=== PATIENT | female | born 1935 | race Caucasian/White ===

== ENCOUNTER → 2016-09-05 | Outpatient (CLI) | payer MEDICARE, OTHER | LOC: RAD 08:45 | DX: I71.4 Abdominal aortic aneurysm, without rupture (principal); R09.89 Other specified symptoms and signs involving the circulatory and respiratory systems; R19.00 Intra-abdominal and pelvic swelling, mass and lump, unspecified site; Z13.6 Encounter for screening for cardiovascular disorders; F17.210 Nicotine dependence, cigarettes, uncomplicated | CPT/HCPCS: 76706 ==

== ENCOUNTER → 2016-09-28 | Outpatient (CLI) | payer MEDICARE, OTHER ==
[2016-09-28 08:54] LABS: ABSOLUTE EOSINOPHILS # (AUTO) 0.1 10^3/uL (0.0-0.6); ABSOLUTE LYMPHOCYTES (AUTO) 1.8 10^3/uL (0.5-4.7); ABSOLUTE MONOCYTES (AUTO) 0.5 10^3/uL (0.1-1.4); ABSOLUTE NEUT (AUTO) 2.8 10^3/uL (1.7-8.2); BASOPHILS % (AUTO) 0.6 % (0-2); EOSINOPHILS % (AUTO) 1.8 % (0-6); HEMATOCRIT 41.1 % (36.0-47.0); HEMOGLOBIN 14.2 g/dL (12.0-15.5); HGB HCT DIFFERENCE 1.5; LYMPHOCYTES % (AUTO) 34.1 % (13-45); MEAN CORPUSCULAR HGB CONC 34.5 g/dL (32.0-36.0); MEAN CORPUSCULAR VOLUME 98 fl (80-97); MONOCYTES % (AUTO) 8.9 % (3-13); RED BLOOD COUNT 4.17 10^6/uL (3.72-5.28); RED CELL DISTRIBUTION WIDTH 13.8 % (11.5-14.0); SEGMENTED NEUTROPHILS % (AUTO) 54.6 % (42-78); WHITE BLOOD COUNT 5.1 10^3/uL (4.0-10.5)
[2016-09-28 09:00] LABS: ALANINE AMINOTRANSFERASE 33 U/L (9-52); ALBUMIN 4.8 g/dL (3.5-5.0); ALKALINE PHOSPHATASE 66 U/L (38-126); ANION GAP 13 (5-19); ASPARTATE AMINO TRANSFERASE 30 U/L (14-36); BILIRUBIN,DIRECT 0.4 mg/dL (0.0-0.4); BILIRUBIN,TOTAL 1.3 mg/dL (0.2-1.3); BLOOD UREA NITROGEN 21 mg/dL (7-20); CALCIUM 10.5 mg/dL (8.4-10.2); CARBON DIOXIDE 28 mmol/L (22-30); CHLORIDE 102 mmol/L (98-107); CREATININE RESULT 0.75 mg/dL (0.52-1.25); Direct HDL 106 mg/dL (>40); GLUCOSE 96 mg/dL (75-110); POTASSIUM 4.3 mmol/L (3.6-5.0); TOTAL PROTEIN 7.7 g/dL (6.3-8.2); TRIGLYCERIDES 104 mg/dL (<150)
[2016-09-28 09:11] LABS: DIRECT LDL 80 mg/dL (<100)
[2016-09-28 09:30] LABS: THYROID STIMULATING HORMONE 0.82 uIU/mL (0.47-4.68)
== END ==
LOC: OD 08:01
PROVIDERS: ATTEND Internal Medicine
DX: Z79.899 Other long term (current) drug therapy (principal); E03.9 Hypothyroidism, unspecified; J45.20 Mild intermittent asthma, uncomplicated
CPT/HCPCS: 36415; 80053; 80061; 84439; 84443; 85025

== ENCOUNTER 2017-03-27 07:51 | Day surgery (SDC) | payer MEDICARE, OTHER ==
[~2017-03-27 07:51] MED LIST: EPINEPHRINE INJ 1 MG/10 ML DISP.SYRIN ONE; FLUMAZENIL INJ 0.5 MG/5 ML VIAL ONE; GLUCAGON,HUMAN RECOMB 1 MG INJ ONE; NALOXONE HCL INJ/PF 0.4 MG/1 ML SDV ONE; ONDANSETRON HCL INJ/PF 4 MG/2 ML SDV ONE
[2017-03-27] MEDS: MIDAZOLAM 2 MG/2 ML INJ ONE ×4 (08:18→08:56)
[2017-03-27] MEDS: FENTANYL CITRATE INJ/PF 100 MCG/2 ML AMPUL ONE ×6 (08:20→09:10)
--- NOTE | 2017-03-27 09:29 | Operative Report ---
Operative Report DATE OF SURGERY: 03/27/17 PREOPERATIVE DIAGNOSIS: Personal history of colon polyps POSTOPERATIVE DIAGNOSIS: 1. Sigmoid diverticulosis disease. 2. Internal hemorrhoids. 3. Ascending colon polyp. 4. Descending colon polyp OPERATION: 1. Total colonoscopy to cecum with photodocumentation. 2. Multiple polypectomies including ascending and descending colon SURGEON: NICOLE OWEN ANESTHESIA: Moderate Sedation TISSUE REMOVED OR ALTERED: Multiple polyps COMPLICATIONS: None ESTIMATED BLOOD LOSS: Scant INTRAOPERATIVE FINDINGS: See below PROCEDURE: Obtaining informed consent the patient was taken from the preoperative holding area to the main endoscopy suite where monitoring devices were attached to the patient. Plan and surgical timeout were conducted The patient was placed in the left lateral decubitus position with knees to chest. A perianal examination was performed. There was no visible or palpable anorectal pathology. Sphincter tone was felt to be normal. The flexible adult colonoscope was advanced through the anal rectal canal, all the way to the cecum. Visualization of the cecum was achieved and the ileocecal valve, the appendiceal orifice and transillumination of the anterior abdominal wall. This was an excellent study on the well-prepped bowel. Of note there were extensive sigmoid diverticulosis with marked amount of tortuosity requiring extensive manipulation to advance the scope through the sigmoid colon. The colonoscope was withdrawn slowly and methodically checked and the mucosa carefully. There was no evidence of tumor, stricture, bleeding; in the ascending colon was a small polyp which was removed with a cold forceps device. Bleeding was negligible. In the left colon was a slightly larger sessile polyp which was removed with a hot snare device medium strength. Both specimens were retrieved and sent as ascending and descending colon polyps respectively. The scope was slowly withdrawn through the anal rectal canal. Complete visualization of the rectum was achieved with photodocumentation. The scope was withdrawn to the patient's anus. The patient tolerated the procedure well and was taken to the recovery area in stable condition. Surveillance guidelines, patient be appropriate candidate for follow-up colonoscopy in 3 years, pending her overall medical condition.
--- NOTE | 2017-03-27 09:31 | PDOC DISCHARGE SUMMARY ---
Discharge Summary (SDC) - Discharge Final Diagnosis: 1. Sigmoid diverticulosis 2. Multiple bone polyps 3. Internal hemorrhoids. Date of Surgery: 03/27/17 Discharge Date: 03/27/17 Condition: Good Treatment or Instructions: [address] [address] POST ENDOSCOPY DISCHARGE INSTRUCTIONS 1. Diet: Start clear liquids that a regular diet as tolerated. 2. Resume all preoperative medications. All oral anticoagulants and aspirins can be resumed 24 hours after procedure. 3. If a polypectomy was performed some bleeding per rectum may occur. This should stop within 3 days. If not, please contact the office. 4. If you had a colonoscopy you may experience some bloating and delayed return of normal bowel function for several days, your regular bowel movement pattern should resume within a week. 5. Please contact [facility] at to make an appointment with Dr. Ricardo for 1 to 3 weeks following procedure. 6. If you have any questions or concerns regarding your care,treatment plan or follow up, please contact our office. 7. Per clinical guidelines we recommend you undergo a repeat colonoscopy in 3 years. Referrals: PETER TIDWELL MD [Primary Care Provider] - Discharge Diet: As Tolerated Discharge Activity: Activity As Tolerated Home Care Assistance: None Needed Report the Following to Your Physician Immediately: Shortness of Breath, Increase in Pain, Fever over 101 Degrees
[2017-03-27 10:33] VITALS: BP 121/69
== END 2017-03-27 10:30 | disposition home or self-care (01) ==
LOC: END 07:51
PROVIDERS: ATTEND Surgery
PROC: 0DBF8ZX Excision of Right Large Intestine, Via Natural or Artificial Opening Endoscopic, Diagnostic (ICD-10-PCS; principal; 2017-03-27 08:15)
PROC: 0DBG8ZX Excision of Left Large Intestine, Via Natural or Artificial Opening Endoscopic, Diagnostic (ICD-10-PCS; 2017-03-27 08:15)
DX: Z12.11 Encounter for screening for malignant neoplasm of colon (principal); D12.2 Benign neoplasm of ascending colon; D12.4 Benign neoplasm of descending colon; K57.30 Diverticulosis of large intestine without perforation or abscess without bleeding; K64.8 Other hemorrhoids; F17.210 Nicotine dependence, cigarettes, uncomplicated; E03.9 Hypothyroidism, unspecified; I73.9 Peripheral vascular disease, unspecified; J45.909 Unspecified asthma, uncomplicated; Z79.02 Long term (current) use of antithrombotics/antiplatelets; Z79.899 Other long term (current) drug therapy
CPT/HCPCS: 45380; 45385; 88305 ×2; J2250; J3010; J0171; J1610; J2310; J2405; J3490

== ENCOUNTER → 2017-05-02 | Outpatient (CLI) | payer MEDICARE, OTHER ==
--- NOTE | 2017-05-02 11:45 | WOMENS IMAGING REPORT ---
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 TECHNIQUE: Dual-Energy X-ray Absorptiometry (DEXA) of the AP Spine and Hip. LIMITATIONS: None. FINDINGS: LUMBAR SPINE: The bone mineral density (BMD) measured from L1-L4 in the AP projection correlates with a T-score of -1.0, which is osteopenia as defined by the World Health Organization. HIP: The bone mineral density (BMD) measured in the left hip correlates with a T-score of -2.3, which is o steopenia as defined by the World Health Organization. IMPRESSION: 1. LUMBAR SPINE: OSTEOPENIA. 2. HIP: OSTEOPENIA. COMMENT: The World Health Organization defines low BMD as follows: T-score: Normal: Greater than -1.0 Osteopenia: Between -1.0 and -2.5 Osteoporosis: Less than -2.5 without fractures Established osteoporosis: Less than -2.5 with fractures In general, you may wish to consider: Diagnosis Treatment Follow-up DEXA Normal BMD Prevention 2-3 years Osteopenia Prevention/Therapy 1-2 years Osteoporosis Therapy Yearly TECHNICAL DOCUMENTATION: JOB ID: [id number] [employer]- All Rights Reserved
--- NOTE | 2017-05-02 18:28 | WOMENS IMAGING REPORT ---
EXAM DESCRIPTION: 3D SCREENING MAMMO BILAT COMPLETED DATE/TIME: 05/02/2017 11:10 am REASON FOR STUDY: ROUTINE SCREENING; Z12.31 Z12.31 ENCNTR SCREEN MAMMOGRAM FOR MALIGNANT NEOPLASM O F SHRUTHI M81.8 OTHER OSTEOPOROSIS WITHOUT CURRENT PATHOLOGICAL FRACTU M81.0 AGE-RELATED OSTEOPOROSIS W /O CURRENT PATHOLOGICAL FRAC COMPARISON: None. TECHNIQUE: Standard craniocaudal and mediolateral oblique views of each breast recorded using digita l acquisition and breast tomosynthesis. LIMITATIONS: None. FINDINGS: Findings present which are benign by mammographic criteria. No suspicious masses, calcifi cations or architectural distortion. Pertinent benign findings: Stable bilateral breast parenchymal calcifications. Old right breast ster eotactic clip upper inner quadrant Read with the assistance of CAD. .[facility] - R2 Cenova Version 1.3 .[facility] Imaging - R2 Cenova Version 1.3 .[facility] Imaging - R2 Cenova Version 2.4 .[facility] [place] - R2 Cenova Version 2.4 .[facility] - R2 Suspension Cord Tier Version 9.2 Benign mammographic findings may include one or more of the following: Smooth masses, popcorn/rim/co arse calcifications, asymmetries, post-procedure changes, and lesions with long-standing stability. IMPRESSION: BENIGN MAMMOGRAPHIC FINDINGS. BIRADS 2 BREAST DENSITY: d. The breasts are extremely dense, which lowers the sensitivity of mammography. BIRAD: 2 BENIGN FINDING(S) RECOMMENDATION: RECOMMENDATION: ROUTINE SCREENING Please continue yearly bilateral screening tomosynthesis in April 2018 COMMENT: The patient has been notified of the results by letter per SA requirements. Additional no tification policies are in place for contacting patient with suspicious or incomplete findings. Quality ID #[id number]: The [employer] recommends an annual screening mammogram for women aged 40 years or over. This facility utilizes a reminder system to ensure that all patients receive reminder letters, and/or direct phone calls for appointments. This includes reminders for routine scr eening mammograms, diagnostic mammograms, or other Breast Imaging Interventions when appropriate. Th is patient will be placed in the appropriate reminder system. The [employer] (ACR) has developed recommendations for screening MRI of the breast s in certain patient populations, to be used in conjunction with mammography. Breast MRI surveillanc e may be appropriate for women with more than 20% lifetime risk of developing breast cancer as deter mined by genetic testing, significant family history of the disease, or history of mantle radiation f or Hodgkins Disease. ACR Practice Guidelines 2008. DBT Technology DBT is a type of tomographic mammography. With conventional mammography, overlapping breast tissue ma y make lesions difficult to detect, even with good compression. DBT uses an x-ray tube that rotates a round the breast, taking images at different angles. These images are then combined to create thin sl ices of the breast that the radiologist can view as a 3D reconstruction. The [employer] unit can perform full-field digital mammograms (2D imaging); or DBT (3D imaging); or both, in a combination mode that quickly performs both the mammogram and the tomosynthesis scan while the breast is still compressed. PQRS 6045F: Fluoroscopic imaging is not utilized for breast tomosynthesis. TECHNICAL DOCUMENTATION: FINDING NUMBER: (1) ASSESSMENT: (1) JOB ID: [id number] [employer]- All Rights Reserved
== END ==
LOC: WI 10:14
PROVIDERS: ATTEND Student in an Organized Health Care Education/Training Program
DX: Z12.31 Encounter for screening mammogram for malignant neoplasm of breast (principal); M81.8 Other osteoporosis without current pathological fracture
CPT/HCPCS: 77063; 77080; G0202; 77067

== ENCOUNTER → 2017-06-13 | Outpatient (CLI) | payer MEDICARE, OTHER ==
--- NOTE | 2017-06-14 08:26 | RADIOLOGY REPORT (SQ) ---
EXAM DESCRIPTION: CHEST PA/LATERAL COMPLETED DATE/TIME: 06/13/2017 5:09 pm REASON FOR STUDY: SHORTNESS OF BREATH,COPD. Cough, shortness of breath. COMPARISON: Chest x-ray 01/05/2014. EXAM PARAMETERS: NUMBER OF VIEWS: two views TECHNIQUE: Digital Frontal and Lateral radiographic views of the chest acquired. RADIATION DOSE: NA LIMITATIONS: none FINDINGS: LUNGS AND PLEURA: No consolidation, pneumothorax or pleural effusion. There is pleural sc arring at the bilateral lung apices. Hyperlucent lungs are suggestive of emphysema. There is a 0.7 x 1.4 cm pleural-based nodularity in the left upper lobe. MEDIASTINUM AND HILAR STRUCTURES: No masses or contour abnormalities. HEART AND VASCULAR STRUCTURES: Heart normal size. No evidence for failure. BONES: No acute findings. HARDWARE: None in the chest. IMPRESSION: Emphysema. 0.7 x 1.4 cm pleural-based nodularity in the left upper lobe, CT thorax rec ommended for better characterisation. TECHNICAL DOCUMENTATION: JOB ID: [id number] [place]-64 2010 [employer]- All Rights Reserved
== END ==
LOC: OD 16:48
PROVIDERS: ATTEND Internal Medicine
DX: J44.9 Chronic obstructive pulmonary disease, unspecified (principal); R06.00 Dyspnea, unspecified; Z87.891 Personal history of nicotine dependence
CPT/HCPCS: 71046

== ENCOUNTER → 2018-03-02 | Outpatient (CLI) | payer MEDICARE, OTHER ==
[2018-03-02 16:45] LABS: BLOOD UREA NITROGEN 26 mg/dL (7-20)
== END ==
LOC: OD 14:25
PROVIDERS: ATTEND Internal Medicine
DX: Z01.812 Encounter for preprocedural laboratory examination (principal); R91.1 Solitary pulmonary nodule
CPT/HCPCS: 36415; 82565; 84520

== ENCOUNTER → 2018-03-05 | Outpatient (CLI) | payer MEDICARE, OTHER ==
--- NOTE | 2018-03-05 11:06 | RADIOLOGY REPORT (SQ) ---
EXAM DESCRIPTION: CT CHEST WITHOUT COMPLETED DATE/TIME: 03/05/2018 10:53 am REASON FOR STUDY: PULMONARY NODULE (R91.1) R91.1 SOLITARY PULMONARY NODULE COMPARISON: Chest films 06/13/2017, 01/05/2014, 01/12/2009 TECHNIQUE: CT scan performed of the chest without intravenous contrast. Images reviewed with lung, soft tissue and bone windows. Reconstructed coronal and sagittal MPR images reviewed. All images st ored on PACS. All CT scanners at this facility use dose modulation, iterative reconstruction, and/or weight based d osing when appropriate to reduce radiation dose to as low as reasonably achievable (ALARA). [facility]: Dose Right [facility]: CareDose [facility]: Dose Right [facility]: Teradose 4D [facility]: Smart Technologies RADIATION DOSE: CT Rad equipment meets quality standard of care and radiation dose reduction techniq ues were employed. CTDIvol: 2.8 mGy. DLP: 109 mGy-cm. mGy. LIMITATIONS: No technical limitations. FINDINGS: LUNGS AND PLEURA: Advanced end-stage obstructive lung disease with enlarged airspaces thro ughout the lungs. No pulmonary parenchymal nodules. No acute infiltrates. No pleural effusion. No pneumothorax. HILAR AND MEDIASTINAL STRUCTURES: Aberrant right subclavian artery, an anatomic variant. There is a 2 cm peripherally calcified aneurysm at the origin of the right aberrant subclavian artery best shown on coronal image 37 and axial image 31. Ascending thoracic aorta 4 cm in diameter. Descending thor acic aorta unremarkable. No hilar or mediastinal adenopathy. Small hiatal hernia. HEART AND PERICARDIUM: No aneurysm. No pericardial effusion. Moderate coronary artery calcification UPPER ABDOMEN: No significant findings. Limited exam. THYROID AND OTHER SOFT TISSUES: No masses. No adenopathy. BONES: No significant finding. HARDWARE: None in the chest. OTHER: No other significant findings. 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
== END ==
LOC: RAD 10:29
PROVIDERS: ATTEND Internal Medicine
DX: R91.1 Solitary pulmonary nodule (principal)
CPT/HCPCS: 71250

== ENCOUNTER 2019-12-13 11:47 | Emergency (ER) | payer MEDICARE, OTHER ==
[2019-12-13] MEDS ORDERED: ASPIRIN 81 MG TABLET, CHEWABLE PO ONE (12:07)
[2019-12-13] MEDS ORDERED: NORMAL SALINE 250 ML IV ONE (12:09)
[2019-12-13] MEDS ORDERED: NORMAL SALINE 1000 ML 1,000 ML IV ONE (12:10)
[2019-12-13 12:16] LABS: ABSOLUTE EOSINOPHILS # (AUTO) 0.1 10^3/uL (0.0-0.6); ABSOLUTE LYMPHOCYTES (AUTO) 1.6 10^3/uL (0.5-4.7); ABSOLUTE MONOCYTES (AUTO) 0.5 10^3/uL (0.1-1.4); ABSOLUTE NEUT (AUTO) 4.3 10^3/uL (1.7-8.2); BASOPHILS % (AUTO) 0.4 % (0-2); EOSINOPHILS % (AUTO) 0.9 % (0-6); HEMATOCRIT 37.6 % (36.0-47.0); HEMOGLOBIN 13.1 g/dL (12.0-15.5); LYMPHOCYTES % (AUTO) 24.7 % (13-45); MEAN CORPUSCULAR HEMOGLOBIN 34.5 pg (27.0-33.4); MEAN CORPUSCULAR HGB CONC 34.7 g/dL (32.0-36.0); MEAN CORPUSCULAR VOLUME 99 fl (80-97); MONOCYTES % (AUTO) 7.5 % (3-13); PLATELET COUNT 204 10^3/uL (150-450); RED BLOOD COUNT 3.79 10^6/uL (3.72-5.28); RED CELL DISTRIBUTION WIDTH 13.4 % (11.5-14.0); SEGMENTED NEUTROPHILS % (AUTO) 66.5 % (42-78); TOTAL CELLS COUNTED % (AUTO) 100 %; WHITE BLOOD COUNT 6.4 10^3/uL (4.0-10.5)
[2019-12-13] MEDS ORDERED: NITROGLYCERIN 0.4 MG/TAB 25 TAB/BOTTLE SL PRN (12:23)
[2019-12-13 12:28] LABS: ALBUMIN 3.8 g/dL (3.5-5.0); ALKALINE PHOSPHATASE 62 U/L (38-126); ANION GAP 8 (5-19); ASPARTATE AMINO TRANSFERASE 27 U/L (14-36); BILIRUBIN,TOTAL 0.9 mg/dL (0.2-1.3); BLOOD UREA NITROGEN 20 mg/dL (7-20); CALCIUM 9.6 mg/dL (8.4-10.2); CARBON DIOXIDE 24 mmol/L (22-30); CHLORIDE 102 mmol/L (98-107); CREATINE KINASE 47 U/L (30-135); GLUCOSE 162 mg/dL (75-110); POTASSIUM 3.8 mmol/L (3.6-5.0); TOTAL PROTEIN 6.2 g/dL (6.3-8.2)
[2019-12-13 12:31] LABS: INTERNATIONAL RATION (INR) 1.08
[2019-12-13 12:32] LABS: PARTIAL THROMBOPLASTIN TIME 22.7 SEC (23.5-35.8)
[2019-12-13 12:40] LABS: CREATINE KINASE MB 0.96 ng/mL (<4.55)
[2019-12-13 12:49] LABS: TROPONIN I < 0.012 ng/mL
--- NOTE | 2019-12-13 12:59 | RADIOLOGY REPORT (SQ) ---
EXAM DESCRIPTION: CHEST SINGLE VIEW IMAGES COMPLETED DATE/TIME: 12/13/2019 12:50 pm REASON FOR STUDY: chest pain COMPARISON: 01/05/2014 EXAM PARAMETERS: NUMBER OF VIEWS: One view. TECHNIQUE: Single frontal radiographic view of the chest acquired. RADIATION DOSE: NA LIMITATIONS: None. FINDINGS: LUNGS AND PLEURA: Lung farris are hyperexpanded. No consolidation. No pneumothorax or ef fusion. Defibrillator pads overlie the chest. MEDIASTINUM AND HILAR STRUCTURES: No masses. Contour normal. HEART AND VASCULAR STRUCTURES: Heart normal in size. Normal vasculature. BONES: No acute findings. HARDWARE: None in the chest. OTHER: No other significant finding. IMPRESSION: Hyperexpansion otherwise negative two-view chest. TECHNICAL DOCUMENTATION: JOB ID: [id number] 2010 [employer]- All Rights Reserved Reading location - IP/workstation name: [email or web address]
--- NOTE | 2019-12-13 14:30 | EKG REPORT ---
SEVERITY:- ABNORMAL ECG - SINUS RHYTHM PROBABLE LVH WITH SECONDARY REPOL ABNRM : Confirmed by: Krystle Pascal MD 13-Dec-2019 14:28:47
--- NOTE | 2019-12-13 14:30 | EKG REPORT ---
SEVERITY:- ABNORMAL ECG - PROBABLE LEFT ATRIAL ABNORMALITY BORDERLINE LEFT AXIS DEVIATION REPOL ABNRM SUGGESTS ISCHEMIA, DIFFUSE LEADS SINUS RHYTHM : Confirmed by: Krystle Pascal MD 13-Dec-2019 14:29:22
[2019-12-13] MEDS ORDERED: ENOXAPARIN SODIUM INJ 40 MG/0.4 ML DISP.SYRIN SUBCUT SCH (15:30)
[2019-12-13] MEDS ORDERED: CLOPIDOGREL BISULFATE 75 MG TABLET PO ONE (15:32)
--- NOTE | 2019-12-13 15:34 | PDOC CONSULTATION ---
Consultation Consult Date: 12/13/19 Attending physician:: CHET MOONEY Provider Consulted: FAUZIA QUEVEDO Consult reason:: CP History of Present Illness Admission Date/PCP: PETER KRAUSE MD History of Present Illness: PATRICIA SHELBY is a 84 year old female with history of hyperlipidemia, COPD, active smoker, hypertension and peripheral vascular disease status post femoropopliteal bypass surgery 10 or 11 years ago who is consulted by the emergency room for evaluation of chest pain. The patient had been in her usual state of health until earlier today when, while shopping, felt hot, weak and short of breath. She went to the bathroom and sat down but continued to feel poorly and lost consciousness. She does not remember anything but waking up in the ambulance. EMS found the patient in the bathroom of a grocery store with a heart rate of 35 and a blood pressure of 70/36. She was given 0.5 mg of Atropine and gave 700 mL of lactated ringers prior to arrival. Physical exam on 12/13/2019: GENERAL: Oriented x3 with normal mood. Speaking in short sentences, slightly tachypneic. Still with mild chest discomfort. HEENT: Normocephalic, atraumatic. Pupils equal. Sclerae anicteric. Oropharynx moist. NECK: No JVD. No carotid bruits. LUNGS: Clear to auscultation bilaterally. Decreased breath sounds bilaterally. CARDIOVASCULAR: Regular rate and rhythm, normal S1 and S2 without murmurs, rubs, or gallops. PMI not displaced. EXTREMITIES: No edema, no cyanosis, no clubbing. Distal pulses are difficult to palpate. SKIN: No lesions or rashes. MUSCULOSKELETAL: No chest tenderness to palpation. NEUROLOGIC: Nonfocal. No gross sensory or motor deficits bilateral upper or lower extremities. Past Medical History Cardiac Medical History: Reports: Coronary Artery Disease, Hyperlipidema Denies: Myocardial Infarction, Hypertension Pulmonary Medical History: Reports: Asthma, Chronic Obstructive Pulmonary Disease (COPD) Denies: Bronchitis, Pneumonia Neurological Medical History: Denies: Seizures GI Medical History: Denies: Hepatitis, Hiatal Hernia Musculoskeltal Medical History: Reports: Arthritis Hematology: Denies: Anemia, Sickle Cell Disease Past Surgical History Past Surgical History: Reports: Hysterectomy, Orthopedic Surgery - R foot, Tonsillectomy, Vascular Surgery - bilat femoral bypass Denies: Amputation, Mastectomy, Pacemaker Social History Smoking Status: Current Every Day Smoker Family History Family History: Reviewed & Not Pertinent Parental Family History Reviewed: Yes Children Family History Reviewed: Yes Sibling(s) Family History Reviewed.: Yes Medication/Allergy Home Medications: Atorvastatin Calcium [Lipitor 10 mg Tablet] 10 mg PO QHS 07/11/13 Clopidogrel Bisulfate [Plavix 75 mg Tablet] 75 mg PO DAILY 07/11/13 Levothyroxine Sodium [Synthroid 0.025 mg Tablet] 25 mcg PO DAILY 01/13/14 Multivitamin [Multi Vitamin Daily] 1 each PO DAILY 01/13/14 Allergies/Adverse Reactions: No Known Allergies Allergy (Verified 03/25/17 13:35) Physical Exam Vital Signs: Temp Pulse Resp BP Pulse Ox 95.2 F L 18 103/64 98 12/13/19 13:18 12/13/19 13:00 12/13/19 13:00 12/13/19 13:00 Intake & Output 12/12/19 12/13/19 12/14/19 06:59 06:59 06:59 Intake Total 1250 Balance 1250 Weight 40.823 kg Results Laboratory Results: 12/13/19 11:53 12/13/19 11:53 12/13/19 12/13/19 12/13/19 11:53 11:53 12:28 WBC 6.4 RBC 3.79 Hgb 13.1 Hct 37.6 MCV 99 H MCH 34.5 H MCHC 34.7 RDW 13.4 Plt Count 204 Seg Neutrophils % 66.5 Sodium 133.6 L Potassium 3.8 Chloride 102 Carbon Dioxide 24 Anion Gap 8 BUN 20 Creatinine 0.79 Est GFR ( Amer) > 60 Glucose 162 H Lactic Acid 1.5 Calcium 9.6 Total Bilirubin 0.9 AST 27 Alkaline Phosphatase 62 Total Protein 6.2 L Albumin 3.8 12/13/19 12/13/19 12/13/19 11:53 11:53 11:53 Creatine Kinase 47 CK-MB (CK-2) 0.96 Troponin I < 0.012 NT-Pro-B Natriuret Pep 631 H Impressions: Chest X-Ray 12/13/19 12:24 IMPRESSION: Hyperexpansion otherwise negative two-view chest. 12/13/19 11:53 12/13/19 11:53 MCV 99 fl (80-97) H 12/13/19 11:53 MCH 34.5 pg (27.0-33.4) H 12/13/19 11:53 MCHC 34.7 g/dL (32.0-36.0) 12/13/19 11:53 RDW 13.4 % (11.5-14.0) 12/13/19 11:53 Seg Neutrophils % 66.5 % (42-78) 12/13/19 11:53 Chloride 102 mmol/L (98-107) 12/13/19 11:53 Carbon Dioxide 24 mmol/L (22-30) 12/13/19 11:53 Anion Gap 8 (5-19) 12/13/19 11:53 Est GFR ( Amer) > 60 (>60) 12/13/19 11:53 Glucose 162 mg/dL (75-110) H 12/13/19 11:53 Lactic Acid 1.5 mmol/L (0.7-2.1) 12/13/19 12:28 Calcium 9.6 mg/dL (8.4-10.2) 12/13/19 11:53 Total Bilirubin 0.9 mg/dL (0.2-1.3) 12/13/19 11:53 AST 27 U/L (14-36) 12/13/19 11:53 Alkaline Phosphatase 62 U/L (38-126) 12/13/19 11:53 Total Protein 6.2 g/dL (6.3-8.2) L 12/13/19 11:53 Albumin 3.8 g/dL (3.5-5.0) 12/13/19 11:53 12/13/19 12/13/19 12/13/19 11:53 11:53 11:53 Creatine Kinase 47 CK-MB (CK-2) 0.96 Troponin I < 0.012 NT-Pro-B Natriuret Pep 631 H Current Medication List Generic Name Dose Route Start Last Admin Trade Name Freq PRN Reason Stop Dose Admin Sodium Chloride 1,000 mls @ 150 mls/hr 12/13/19 12:10 12/13/19 13:48 Nacl 0.9% 1000 Ml Iv Soln IV 12/13/19 18:49 Infused BOLUS ONE Infusion Nitroglycerin 1 tab 12/13/19 12:23 12/13/19 12:30 Nitrostat 0.4 Mg (1/150 Gr) Tabs 25/Bottle SL 01/12/20 12:22 1 tab Q5MP PRN Administration FOR CHEST PAIN Discontinued Medications Generic Name Dose Route Start Last Admin Trade Name Jamir PRN Reason Stop Dose Admin Aspirin 324 mg 12/13/19 12:07 12/13/19 12:22 Aspirin 81 Mg Chewable Tablet PO 12/13/19 12:08 324 mg NOW ONE Administration Sodium Chloride 250 mls @ 0 mls/hr 12/13/19 12:09 12/13/19 12:39 Nacl 0.9% 250 Ml Iv Soln IV 12/13/19 12:10 Infused NOW ONE Infusion Wide Open Assessment & Plan - Diagnosis (1) Chest pain Is this a current diagnosis for this admission?: Yes Plan: 84-year-old female with multiple cardiac risk factors for coronary artery disease particularly history of peripheral arterial disease status post femoropopliteal bypass surgery 10 or 11 years ago. She denies prior cardiac history however she continues to have chest discomfort in the setting of ST depressions in the lateral leads which improved after 1 dose of sublingual nitroglycerin but unfortunately she dropped her pressures after that. Her chest pain is improved but still present. Her first troponin is normal but her BNP is slightly elevated. Given her prior history and cardiac risk factors for cor onary artery disease as well as her initial EKG I am very concerned about the possibility of active ischemia therefore we will treat her as such and we will transfer her to [facility]. Of note, her EKG did not demonstrated inferior changes and right-sided EKG was also negative for RV infarct therefore we will try low-dose nitroglycerin with up titration as tolerated. Recommendations: -Aspirin had already been administered. -Anticoagulation with your choice of Lovenox versus heparin. -Nitroglycerin infusion and titrate to effect as tolerated by blood pressure. -Transfer to [facility]. (2) Syncope Is this a current diagnosis for this admission?: Yes Plan: Vasovagal versus primary conduction disease. Her subsequent EKG demonstrated sinus rhythm. The patient will be transferred to [facility] and I will defer further work-up to them.
--- NOTE | 2019-12-13 16:14 | ER Document Report ---
Entered by YULI LONGO SCRIBE 12/13/19 1214 Acting as scribe for:CHET MOONEY MD ED Cardiac - General Chief Complaint: Irregular Pulse Stated Complaint: ALTERED MENTAL STATUS Primary Care Provider: PETER KRAUSE MD [Primary Care Provider] - Follow up as needed Information source: Patient Notes: This 84 year old female patient presents to the emergency department today with complaints of shortness of breath, chest pain, and bradycardia per EMS. EMS found the patient in the bathroom of a grocery store with a heart rate of 35 and a blood pressure of 70/36. EMS administered 0.5 mg of Atropine and gave 700 mL of lactated ringers prior to arrival. Patient has smoked cigarettes her entire life and continues to smoke currently. Patient complains of dizziness as well. Patient mentions that she gets very short of breath when she goes outside to do anything the last few days. TRAVEL OUTSIDE OF THE [place] IN LAST 30 DAYS: No - Related Data Allergies/Adverse Reactions: No Known Allergies Allergy (Verified 03/25/17 13:35) Past Medical History - General Information source: Patient - Social History Smoking Status: Current Every Day Smoker Cigarette use (# per day): Yes Frequency of alcohol use: Heavy Drug Abuse: None Lives with: Family Family History: Reviewed & Not Pertinent - Past Medical History Cardiac Medical History: Reports: Hx Coronary Artery Disease, Hx Hypercholesterolemia Pulmonary Medical History: Reports: Hx Asthma, Hx COPD Musculoskeletal Medical History: Reports Hx Arthritis Past Surgical History: Reports: Hx Abdominal Surgery - adhesions, Hx Hysterectomy, Hx Orthopedic Surgery - R foot, Hx Tonsillectomy, Hx Vascular Surgery - bilat femoral bypass - Immunizations Hx Diphtheria, Pertussis, Tetanus Vaccination: No Hx Pneumococcal Vaccination: 02/16/17 Review of Systems - Review of Systems Constitutional: No symptoms reported EENT: No symptoms reported Cardiovascular: See HPI, Chest pain, Syncope - ?, Dizziness, Lightheaded, Other - bradycardia Respiratory: See HPI, Short of breath Gastrointestinal: No symptoms reported Genitourinary: No symptoms reported Female Genitourinary: No symptoms reported Musculoskeletal: No symptoms reported Skin: No symptoms reported Hematologic/Lymphatic: No symptoms reported Neurological/Psychological: No symptoms reported -: Yes All other systems reviewed and negative Physical Exam - Vital signs Vitals: Resp 12/13/19 11:54 - Notes Notes: Physical Exam: General: Alert, fraile, appears weak. HEENT: Normocephalic. Atraumatic. PERRL. Extraocular movements intact. Oropharynx clear. Moist mucous membranes. Neck: Supple. Non-tender. Respiratory: No respiratory distress. Diminished breath sounds bilaterally. Cardiovascular: Regular rate and rhythm. Abdominal: Normal Inspection. Non-tender. No distension. Normal Bowel Sounds. Back: No gross abnormalities. Extremities: Moves all four extremities. Upper extremities: Normal inspection. Normal ROM. Lower extremities: Normal inspection. No edema. Normal ROM. Neurological: Normal cognition. AAOx4. Normal speech. Psychological: Normal affect. Normal Mood. Skin: Warm. Dry. Normal color. Course - Re-evaluation Re-evalutation: 12/13/19 15:33 Patient with COPD who was shopping today and developed shortness of breath and generalized weakness well in the supermarket. She went to the bathroom and ended up having EMS called to the scene as patient was weak short of breath and was bradycardic. EMS reports patient's heart rate was in the 40s and she was sweating and complaining of chest pain. They provided her with IV fluids IV atropine 0.5 mg push patient's heart rate returned to the normal range and patient was brought into the emergency department without any other bradycardic or hypertension issues. Initial EKG disclose that there was some ST depressions new in the lateral chest leads with an incomplete right bundle branch block pattern. Patient states she had 5 out of 10 chest tightness pressure over the center of her chest. Patient's tachypneic on arrival. Patient was given fluid challenge bolus as well as sublingual nitroglycerin and 4 baby aspirin. Patient dropped her blood pressure down into the low 80s after 1 sublingual nitroglycerin. However patient did state that her chest pain did improve after the one sublingual nitroglycerin. Patient was re-bolused fluids and repeat EKG showed improvement in ST depressions that were present in the lateral chest leads. Consulted with Dr. Pablo Pantoja, recycling or rubbish collector congressional aide for the ER and hospital who performed a bedside evaluation the patient including EKGs done from the right sided EKG as well as a posterior EKG and patient's rhythm has remained stable around 61 to 63 with left atrial abnormalities and LVH with some secondary repolarization abnormalities. Patient also had a bedside echocardiogram performed by Dr. Pantoja which did not show any abnormal wall motion activity. Because of the initial EKG showing ST depression in the lateral chest leads, and then the patient of her age with known atherosclerotic disease with bilateral femoropopliteal bypass procedures done in the past. Also patient continues to smoke cigarettes which puts her at greater risk for an acute coronary syndrome condition. Currently the initial troponin is normal pending the second troponin at this time. With consultation with Dr. Pantoja the plan was to keep her on her usual medicines including [facility] and to transfer patient to a higher level facility such as [facility] to transfer patient - Vital Signs Vital signs: Temp Pulse Resp BP Pulse Ox 95.2 F L 18 103/64 98 12/13/19 13:18 12/13/19 13:00 12/13/19 13:00 12/13/19 13:00 12/13/19 15:40 Vital signs stable. - Laboratory Result Diagrams: 12/13/19 11:53 12/13/19 11:53 Laboratory results interpreted by me: 12/13/19 12/13/19 12/13/19 11:53 11:53 11:53 MCV 99 H MCH 34.5 H APTT 22.7 L Sodium 133.6 L Glucose 162 H NT-Pro-B Natriuret Pep Total Protein 6.2 L 12/13/19 11:53 MCV MCH APTT Sodium Glucose NT-Pro-B Natriuret Pep 631 H Total Protein Laboratories within normal limits except the BMP shows level of 631 troponin is less than detectable at this time. Second troponin is pending. - Diagnostic Test Radiology reviewed: Image reviewed, Reports reviewed Radiology results interpreted by me: 12/13/19 15:40 Chest x-ray shows COPD and no other acute process. - EKG Interpretation by Me Additional EKG results interpreted by me: 12/13/19 15:42 Twelve-lead EKGs first 1 shows normal sinus rhythm rate of within normal limits left anterior deviation left atrial abnormalities repolarization changes with ST depressions noted in diffuse leads suggesting ischemia. Second EKG shows normal sinus rhythm and rate, LVH with secondary repull changes and improvement in the ST depressions in the diffuse leads that were on the first EKG. Fourth EKG posterior normal sinus rhythm rate of 63 left atrial abnormality and nonspecific T wave abnormalities anterior lateral Fourth EKG shows a right-sided EKG shows normal sinus rhythm incomplete right bundle branch block LVH with secondary repull changes. Critical Care Note - Critical Care Note Total time excluding time spent on procedures (mins): 65 - Time spent on receiving patient from EMS on arrival,, evaluating patient who is tachypneic weak in general complaining of chest pain chest pressure. Controlling blood pressure and chest pain with IV fluids resuscitation and nitroglycerin and aspirin therapy. Patient also has a temperature core temperature of 95.2. And work-up for sepsis in the event that patient has a infection that is causing her low temperature. Coordinating with recycling or rubbish collector consultation and executing further management of patients with acute coronary syndrome. Plans to use tra nsfer patient to a higher level facility once transfer acceptance has been made. Discharge - Discharge Clinical Impression: Acute coronary syndrome, COPD (chronic obstructive pulmonary disease), Bradycardia with 41-50 beats per minute, Chest pain Condition: Critical Disposition: [facility] Referrals: PETER KRAUSE MD [Primary Care Provider] - Follow up as needed I personally performed the services described in the documentation, reviewed and edited the documentation which was dictated to the scribe in my presence, and it accurately records my words and actions.
[2019-12-13 16:16] LABS: AMORPHOUS SEDIMENT,URINE TRACE /HPF; APPEARANCE,URINE CLOUDY; BILIRUBIN,URINE NEGATIVE (NEGATIVE); COLOR,URINE YELLOW; GLUCOSE, URINE NEGATIVE (NEGATIVE); KETONES,URINE TRACE mg/dL (NEGATIVE); PROTEIN,URINE NEGATIVE (NEGATIVE); URINE SPECIFIC GRAVITY 1.014; UROBILINOGEN,URINE NEGATIVE mg/dL (<2.0)
[2019-12-13 16:45] LABS: CREATINE KINASE MB 5.36 ng/mL (<4.55)
[2019-12-13 16:54] LABS: TROPONIN I 0.953 ng/mL
[2019-12-13 19:38] VITALS: BP 118/74
[2019-12-13] MEDS ORDERED: ALBUTEROL SULFATE 0.083% NEB 2.5 MG/3 ML AMPUL NEB ONE (19:42)
--- NOTE | 2019-12-13 19:45 | ER Document Report ---
Doctor's Note Notes: 12/13/19 19:43 This is an 84-year-old lady with a history of COPD seen in the emergency department today primarily by Dr. Jose Hdez who came in with what was felt to be acute coronary syndrome. She has had 2 troponins that are negative. She is pain-free at this time and has chest x-ray showing COPD which is consistent with her known history. She was accepted for transfer by Dr. Pantoja (cardiology) at [facility]. She is currently on Lovenox aspirin and Plavix. She is still pain-free but is complaining of mild dyspnea and thinks that she needs her nebulizer treatment that she usually takes at home. I listen to her and she is got very minimal end expiratory wheezes. She is oxygenating fine her vital signs are stable. I will give her an albuterol treatment at this time. Transport team is here to move her to [facility] and I think she is stable for transport following nebulizer treatment. EMTALA form completed already by Dr. Hdez.
--- NOTE | 2019-12-13 19:48 | EKG REPORT ---
SEVERITY:- ABNORMAL ECG - SINUS RHYTHM LEFT ATRIAL ABNORMALITY NONSPECIFIC T ABNORMALITIES, ANT-LAT LEADS : Confirmed by: Krystle Pascal MD 13-Dec-2019 19:47:03
--- NOTE | 2019-12-13 19:48 | EKG REPORT ---
SEVERITY:- ABNORMAL ECG - SINUS RHYTHM INCOMPLETE RIGHT BUNDLE BRANCH BLOCK LVH WITH SECONDARY REPOLARIZATION ABNORMALITY : Confirmed by: Krystle Pascal MD 13-Dec-2019 19:47:00
== END 2019-12-13 19:50 | disposition short-term general hospital (02) ==
LOC: ER 11:47
DX: I24.9 Acute ischemic heart disease, unspecified (principal); I25.10 Atherosclerotic heart disease of native coronary artery without angina pectoris; R00.1 Bradycardia, unspecified; J44.9 Chronic obstructive pulmonary disease, unspecified; I51.7 Cardiomegaly; R06.02 Shortness of breath; R07.89 Other chest pain; R42 Dizziness and giddiness; R53.1 Weakness; I45.10 Unspecified right bundle-branch block; E78.5 Hyperlipidemia, unspecified; F17.210 Nicotine dependence, cigarettes, uncomplicated; E78.00 Pure hypercholesterolemia, unspecified; Z79.899 Other long term (current) drug therapy; Z79.82 Long term (current) use of aspirin; Z79.01 Long term (current) use of anticoagulants
CPT/HCPCS: 93005; 94640; 99285; 96372; 96360; 36415; 87040; 82553; 82550; 83605; 85025; 85610; 85730; 82270; 80053; 81001; 84484; 83880; 71045; 93010; A9270 ×4; J1650; J7030; J7050

== ENCOUNTER 2020-05-03 16:10 | Emergency (ER) | payer MEDICARE, OTHER ==
--- NOTE | 2020-05-03 16:15 | ER Document Report ---
ED Medical Screen (RME) - General Chief Complaint: S/S of Possible Stroke Stated Complaint: SLURRED SPEECH,WEAKNESS Time Seen by Provider: 05/03/20 16:12 Primary Care Provider: PETER KRAUSE MD [Primary Care Provider] - Follow up as needed Notes: HPI: History is obtained from the patient the chart and the . Limited from the patient secondary to some confusion. An 84-year-old female brought in for evaluation of altered mentation. states she was here several days ago for a syncopal episode. states they were at [place] at a pulmonology appointment for the patient and as they were driving home she became altered and confused in the car. then brought her here. States that her speech is slurred. PHYSICAL EXAMINATION: Patient is able to answer questions although she is aylin ewhat inappropriate at times with her answers. She is able to move upper and lower extremities although somewhat limited fine motor movement. She is able to follow commands. Sensation appears intact bilateral upper and lower extremities. Speech is slurred. Do not detect a definitive facial droop but limited exam in triage area. Discussed with Kendra charge nurse regarding bed placement. Discussed with attending I have greeted and performed a rapid initial assessment of this patient. A comprehensive ED assessment and evaluation of the patient, analysis of test results and completion of medical decision making process will be conducted by an additional ED providers. Please note that clinical decision making for this patient was made during the 2019 pandemic of novel coronavirus which caused a significant strain on the healthcare system including at this particular facility. Criteria for admission discharge and level of care decisions as well as treatment decisions have necessarily changed TRAVEL OUTSIDE OF THE [place] IN LAST 30 DAYS: No - Related Data Allergies/Adverse Reactions: No Known Allergies Allergy (Verified 03/25/17 13:35) Past Medical History - Past Medical History Cardiac Medical History: Reports: Hx Coronary Artery Disease, Hx Heart Attack - November 2019, Hx Hypercholesterolemia Denies: Hx Hypertension Pulmonary Medical History: Reports: Hx Asthma, Hx COPD Denies: Hx Bronchitis, Hx Pneumonia Neurological Medical History: Denies: Hx Cerebrovascular Accident, Hx Seizures GI Medical History: Denies: Hx Hepatitis, Hx Hiatal Hernia, Hx Ulcer Musculoskeltal Medical History: Reports Hx Arthritis Infectious Medical History: Denies: Hx Hepatitis Past Surgical History: Reports: Hx Abdominal Surgery - adhesions, Hx Cardiac Catheterization - November 2019, 6 blockages not stented, Hx Hysterectomy, Hx Orthopedic Surgery - R foot, Hx Tonsillectomy, Hx Vascular Surgery - bilat f emoral bypass. Denies: Hx Mastectomy, Hx Open Heart Surgery, Hx Pacemaker - Immunizations Hx Diphtheria, Pertussis, Tetanus Vaccination: No Doctor's Discharge - Discharge Referrals: PETER KRAUSE MD [Primary Care Provider] - Follow up as needed
--- NOTE | 2020-05-03 16:31 | RADIOLOGY REPORT (SQ) ---
EXAM DESCRIPTION: CT HEAD WITHOUT IMAGES COMPLETED DATE/TIME: 05/03/2020 4:20 pm REASON FOR STUDY: stroke COMPARISON: None. TECHNIQUE: Axial images acquired through the brain without intravenous contrast. Images reviewed wi th bone, brain and subdural windows. Additional sagittal and coronal reconstructions were generated. Images stored on PACS. All CT scanners at this facility use dose modulation, iterative reconstruction, and/or weight based d osing when appropriate to reduce radiation dose to as low as reasonably achievable (ALARA). [facility]: Dose Right [facility]: CareDose [facility]: Dose Right [facility]: Teradose 4D [facility]: Smart Technologies RADIATION DOSE: CT Rad equipment meets quality standard of care and radiation dose reduction techniq ues were employed. CTDIvol: 53.2 mGy. DLP: 1044 mGy-cm. LIMITATIONS: None. FINDINGS: There is diffuse age-appropriate cerebral and cerebellar volume loss. The caliber of the ventricles is concordant with the degree of sulcation. There is no acute intracranial hemorrhage, va scular territorial infarct, extra-axial fluid collection or mass effect. The brock-white matter diffe rentiation is preserved. There is no effacement of the cerebral sulci or basal subarachnoid cisterns . The globes are aphakic. The orbits are intact. The paranasal sinuses and the mastoid air cells are clear. There is no calvarial fracture. IMPRESSION: No acute intracranial abnormality. EVIDENCE OF ACUTE STROKE: NO. COMMENT: Quality ID # [id number]: Final reports with documentation of one or more dose reduction techniques (e.g., Automated exposure control, adjustment of the mA and/or kV according to patient size, use of iterative reconstruction technique) TECHNICAL DOCUMENTATION: JOB ID: [id number] 2010 [employer]- All Rights Reserved Reading location - IP/workstation name: [email or web address]
--- NOTE | 2020-05-03 16:35 | RADIOLOGY REPORT (SQ) ---
EXAM DESCRIPTION: CHEST SINGLE VIEW IMAGES COMPLETED DATE/TIME: 05/03/2020 4:21 pm REASON FOR STUDY: stroke COMPARISON: AP view of the chest from 04/28/2020. EXAM PARAMETERS: NUMBER OF VIEWS: One view. TECHNIQUE: An AP view of the chest was obtained. RADIATION DOSE: NA LIMITATIONS: None. FINDINGS: LUNGS AND PLEURA: Upper lobe predominant emphysema without a superimposed acute consolidat ion, pleural effusion or pneumothorax. MEDIASTINUM AND HILAR STRUCTURES: No mediastinal or hilar contour abnormality. HEART AND VASCULAR STRUCTURES: The cardiac silhouette and pulmonary vasculature are within normal pierre its. BONES: No acute findings. HARDWARE: None in the chest. OTHER: No other finding. IMPRESSION: COPD without a superimposed acute cardiopulmonary process. TECHNICAL DOCUMENTATION: JOB ID: [id number] 2010 [employer]- All Rights Reserved Reading location - IP/workstation name: [email or web address]
[2020-05-03 16:44] LABS: INTERNATIONAL RATION (INR) 0.98; PROTHROMBIN TIME 13.2 SEC (11.4-15.4)
[2020-05-03 16:45] LABS: ABSOLUTE EOSINOPHILS # (AUTO) 0.1 10^3/uL (0.0-0.6); ABSOLUTE LYMPHOCYTES (AUTO) 1.5 10^3/uL (0.5-4.7); ABSOLUTE MONOCYTES (AUTO) 0.5 10^3/uL (0.1-1.4); ABSOLUTE NEUT (AUTO) 2.8 10^3/uL (1.7-8.2); BASOPHILS % (AUTO) 0.6 % (0-2); EOSINOPHILS % (AUTO) 1.9 % (0-6); HEMOGLOBIN 11.8 g/dL (12.0-15.5); LYMPHOCYTES % (AUTO) 30.6 % (13-45); MEAN CORPUSCULAR HEMOGLOBIN 34.5 pg (27.0-33.4); MEAN CORPUSCULAR HGB CONC 34.6 g/dL (32.0-36.0); MEAN CORPUSCULAR VOLUME 100 fl (80-97); MONOCYTES % (AUTO) 9.6 % (3-13); PARTIAL THROMBOPLASTIN TIME 27.5 SEC (23.5-35.8); PLATELET COUNT 208 10^3/uL (150-450); RED BLOOD COUNT 3.41 10^6/uL (3.72-5.28); RED CELL DISTRIBUTION WIDTH 13.7 % (11.5-14.0); SEGMENTED NEUTROPHILS % (AUTO) 57.3 % (42-78); TOTAL CELLS COUNTED % (AUTO) 100 %; WHITE BLOOD COUNT 4.8 10^3/uL (4.0-10.5)
[2020-05-03 17:02] LABS: ALBUMIN 4.4 g/dL (3.5-5.0); ALKALINE PHOSPHATASE 51 U/L (38-126); ANION GAP 7 (5-19); ASPARTATE AMINO TRANSFERASE 28 U/L (14-36); BILIRUBIN,DIRECT 0.1 mg/dL (0.0-0.4); BILIRUBIN,TOTAL 0.6 mg/dL (0.2-1.3); BLOOD UREA NITROGEN 27 mg/dL (7-20); CARBON DIOXIDE 28 mmol/L (22-30); CHLORIDE 101 mmol/L (98-107); GLUCOSE 96 mg/dL (75-110); POTASSIUM 4.5 mmol/L (3.6-5.0); TOTAL PROTEIN 7.1 g/dL (6.3-8.2)
--- NOTE | 2020-05-03 17:31 | ER Document Report ---
ED NIH Stroke Scale - NIH Stroke Scale When completed:: Before Alteplase *: 1. NIH scale should be completed with appropriate accompanying assessment tools. *: 2. The NIH should reflect what the patient is capable of doing and should not be coached by the clinician. 1a. Level of Consciousness: 0=Alert;keenly responsive -: 1=Drowsy -: 2=Obtunded -: 3=Coma/unresponsive or reflex to noxious stimuli. 1a. Responses: 0 1b. Orientation Questions: a. What month is it? -: b. How old are you? -: 0=Answers both questions correctly. -: 1=Answers one question correctly or patient is intubated or has orotracheal trauma. -: 2=Answers neither question correctly. 1b. Responses: 0 1c. Response to commands: a. Open and close eyes? -: b. Executive Sales Manager and release hand? -: Credit is given despite weakness. Demonstration of task is permitted. Substitute command if hands cannot be used. -: 0=Performs both tasks correctly -: 1=Performs one task correctly -: 2=Performs neither task correctly 1c. Responses: 0 2. Gaze: Establish eye contact and instruct patient to "Follow my finger" -: 0=Normal -: 1=Partial gaze palsy. Gaze is abnormal in one or both eyes, but where forced deviation or total gaze paresis is not present. -: 2=Forced deviation or total gaze paresis. 2. Responses: 0 3. Visual Cortez: Sees fingers in all four quadrants. -: 0=No visual loss. -: 1=Partial hemianopsia. -: 2=Complete hemianopsia. -: 3=Bilateral hemianopsia (including Cortical blindness) 3. Responses: 0 4. Facial Movement: Instruct patient to: -: a. Show me your teeth -: b. Raise your eyebrows -: c. Close your eyes -: d. Smile -: 0=Normal symmetrical movement -: 1=Minor paralysis (flattened nasolabial fold, asymmetry on smiling). -: 2=Partial paralysis (total or near total paralysis of lower face). -: 3=Complete paralysis of upper and lower face 4. Responses: 0 5. Motor functions (left arm): Alternate sides and extend each arm with palms down (90 degrees if sitting or 45 degrees for supine). -: 0=No drift;limb holds for full 10 seconds. -: 1=Drift; limb holds but drifts down before full 10 seconds, but does not hit bed. -: 2=Some effort against gravity; limb cannot get to or maintain position. -: 3=No effort against gravity; limb falls. -: 4=No movement. -: UN=Amputation, joint fusion, explain in comments. 5. Responses (left arm): 0 5. Motor Functions (right arm): Alternate sides and extend each arm with palms down (90 degrees if sitting or 45 degrees for supine). -: 0=No drift;limb holds for full 10 seconds. -: 1=Drift; limb holds but drifts down before full 10 seconds, but does not hit bed. -: 2=Some effort against gravity; limb cannot get to or maintain position. -: 3=No effort against gravity; limb falls. -: 4=No movement. -: UN=Amputation, joint fusion, explain in comments. 5. Responses (right arm): 0 6. Motor Functions (left leg): With patient lying supine, alternate sides and extend each leg (30 degrees always while supine). -: 0=No drift, leg holds position for full 5 seconds -: 1=Drift; leg falls before full 5 seconds but does not hit bed. -: 2=Some effort against gravity, leg falls to bed but some effort against gravity. -: 3=No effort against gravity, leg falls to bed immediately. -: 4=No movement. -: UN=Amputation, joint fusion; explain in comments. 6. Responses (left leg): 0 6. Motor Functions (right leg): With patient lying supine, alternate sides and extend each leg (30 degrees always while supine). -: 0=No drift, leg holds position for full 5 seconds -: 1=Drift; leg falls before full 5 seconds but does not hit bed. -: 2=Some effort against gravity, leg falls to bed but some effort against gravity. -: 3=No effort against gravity, leg falls to bed immediately. -: 4=No movement. -: UN=Amputation, joint fusion; explain in comments. 6. Responses (right leg): 0 7. Limb Ataxia: With eyes open instruct patient to: -: a. "Touch your finger to your nose". -: b. "Touch your heel to your harris" -: 0=Absent -: 1=Present in one limb. -: 2=Present in two limbs. -: UN=Amputation or joint fusion; explain in comments. 7. Responses: 0 8. Sensory: Test sensation using pinprick or noxious stimuli. Test as many body parts as possible. -: 0=Normal;no sensory loss -: 1=Mile to moderate sensory loss (patient feels pin prick but is less sharp on affected side). -: 2=Severe or total sensory loss. 8. Responses: 0 9. Best Language: Instruct patient to: -: a. "Describe what you see in this picture." -: b. "Name the items in this picture." -: c. "Read these sentences." -: 0=No aphasia, normal -: 1=Mild to moderate aphasia. -: 2=Severe aphasia -: 3=Mute, global aphasia, no usable speech or auditory comprehension. 9. Responses: 0 10. Articulation, Dysarthia: Instruct patient to: -: "Read these words" or "Repeat these words" -: 0=Normal -: 1=Mild to moderate; patient may slur some words but can be understood without difficulty. -: 2=Severe; patients speech so slurred as to be unintelligible in the absence of dysphasia. -: UN=Intubated or other physical barrier, explain in comments. 10. Responses: 0 11. Extinction or inattention: 0=No abnormality -: 1= Visual, tactile, auditory, spatial, or personal inattention or extinction to bilateral simulation in one or the sensory modalities. -: 2=Profound megan-inattention or megan-inattention to more than one modality; does not recognize own hand. 11. Responses: 0 Total Score: 0
--- NOTE | 2020-05-03 17:33 | ER Document Report ---
ED General - General Chief Complaint: S/S of Possible Stroke Stated Complaint: SLURRED SPEECH,WEAKNESS Time Seen by Provider: 05/03/20 16:12 Primary Care Provider: PETER KRAUSE MD [Primary Care Provider] - Follow up as needed Information source: Patient, Relative - TRAVEL OUTSIDE OF THE [place] IN LAST 30 DAYS: No - HPI Notes: Patient is brought in by due to some altered mental status trouble speaking and trouble walking. states they were seeing the wood boring machine operator today and patient was informed that she will have to wear oxygen due to her progressive pulmonary disease. The patient became very upset at having her oxygen and was tearful and emotional on the drive home. He states by the time they arrived home patient was having some slurred speech and was too weak to get out of the car so he brought the patient to the emergency department. Patient here denies any pain. She denies any significant shortness of breath. She has no specific complaints. Per she has improved since the car ride. She still appears weak however her speech is no longer slurred per . - Related Data Allergies/Adverse Reactions: No Known Allergies Allergy (Verified 05/03/20 16:45) Past Medical History - General Information source: Patient, Relative - - Social History Smoking Status: Former Smoker Frequency of alcohol use: None Drug Abuse: None Family History: Reviewed & Not Pertinent Patient has homicidal ideation: No - Past Medical History Cardiac Medical History: Reports: Hx Coronary Artery Disease, Hx Heart Attack - November 2019, Hx Hypercholesterolemia Denies: Hx Hypertension Pulmonary Medical History: Reports: Hx Asthma, Hx COPD Denies: Hx Bronchitis, Hx Pneumonia Neurological Medical History: Denies: Hx Cerebrovascular Accident, Hx Seizures GI Medical History: Denies: Hx Hepatitis, Hx Hiatal Hernia, Hx Ulcer Musculoskeletal Medical History: Reports Hx Arthritis Infectious Medical History: Denies: Hx Hepatitis Past Surgical History: Reports: Hx Abdominal Surgery - adhesions, Hx Cardiac Catheterization - November 2019, 6 blockages not stented, Hx Hysterectomy, Hx Orthopedic Surgery - R foot, Hx Tonsillectomy, Hx Vascular Surgery - bilat femoral bypass. Denies: Hx Mastectomy, Hx Open Heart Surgery, Hx Pacemaker - Immunizations Hx Diphtheria, Pertussis, Tetanus Vaccination: No Hx Pneumococcal Vaccination: 02/16/17 Review of Systems - Review of Systems Constitutional: Weakness. denies: Chills, Fever Cardiovascular: denies: Chest pain, Palpitations Respiratory: denies: Cough, Short of breath -: Yes All other systems reviewed and negative Physical Exam - Vital signs Vitals: Pulse Resp BP Pulse Ox 65 21 H 155/95 H 100 05/03/20 16:11 05/03/20 16:11 05/03/20 16:11 05/03/20 16:11 Interpretation: Hypertensive - General General appearance: Appears well, Alert - HEENT Head: Normocephalic, Atraumatic Eyes: Normal Pupils: PERRL - Respiratory Respiratory status: No respiratory distress Chest status: Nontender Breath sounds: Normal Chest palpation: Normal - Cardiovascular Rhythm: Regular Heart sounds: Normal auscultation Murmur: No - Abdominal Inspection: Normal Distension: No distension Bowel sounds: Normal Tenderness: Nontender Organomegaly: No organomegaly - Back Back: Normal, Nontender - Extremities General upper extremity: Normal inspection, Nontender, Normal color, Normal ROM, Normal temperature General lower extremity: Normal inspection, Nontender, Normal color, Normal ROM, Normal temperature, Normal weight bearing. No: Venancio's sign - Neurological Neuro grossly intact: Yes Cognition: Normal Orientation: AAOx4 [place] Coma Scale Eye Opening: Spontaneous [place] Coma Scale Verbal: Oriented [place] Coma Scale Motor: Obeys Commands [place] Coma Scale Total: 15 Speech: Normal Cranial nerves: Normal Cerebellar coordination: Normal Motor strength normal: LUE, RUE, LLE, RLE Additional motor exam normals: Equal wallpaper cleaner. No: Pronator drift Sensory: Normal - Psychological Associated symptoms: Anxious, Flat affect - Skin Skin Temperature: Warm Skin Moisture: Dry Skin Color: Normal Course - Re-evaluation Re-evalutation: 05/03/20 19:04 Patient arrived with some weakness and trouble speaking however on my exam she had a stroke scale of 0. She is a currently awaiting results of her MRI. Dr. Rodriguez will follow up on this determine final disposition. - Vital Signs Vital signs: Temp Pulse Resp BP Pulse Ox 68 16 169/104 H 100 05/03/20 16:12 05/03/20 17:01 05/03/20 17:01 05/03/20 17:01 - Laboratory Results Result Diagrams: 05/03/20 16:30 05/03/20 16:30 Laboratory Results Interpreted: 12/16/20 12/16/20 16:30 16:30 RBC 3.41 L Hgb 11.8 L Hct 34.0 L MCV 100 H MCH 34.5 H Sodium 135.5 L BUN 27 H Est GFR (MDRD) Non-Af 53 L Critical Laboratory Results Reviewed: No Critical Results - Radiology Results Critical Radiology Results Reviewed: No Critical Results Discharge - Discharge Clinical Impression: Weakness Condition: Fair Disposition: OTHER Referrals: PETER KRAUSE MD [Primary Care Provider] - Follow up as needed
--- NOTE | 2020-05-03 19:07 | RADIOLOGY REPORT (SQ) ---
EXAM DESCRIPTION: MRI HEAD WITHOUT IMAGES COMPLETED DATE/TIME: 05/03/2020 3:50 pm REASON FOR STUDY: ams COMPARISON: CT head same date. TECHNIQUE: Multiplanar imaging includes non-contrasted T1, T2, FLAIR, and Diffusion with ADC map seq uences. Images stored on PACS. LIMITATIONS: None. FINDINGS: ANATOMY: No anomalies. Normal vascular flow voids. Pituitary fossa normal. CSF SPACES: Normal in size and contour. No hemorrhage. CEREBRUM: A few high-signal intensity lesions scattered throughout the white matter on FLAIR imaging with distribution suggesting chronic micro-vascular ischemic change. Sulci and gyri normal in size a nd contour. No evidence of hemorrhage, mass or extraaxial fluid collection. POSTERIOR FOSSA: No signal alteration. No hemorrhage. No edema, masses or mass effect. Internal tessa tory canals, cerebello-pontine angles, mastoids normal. DIFFUSION: Negative for acute or sub-acute infarction. ORBITS: No masses. Globes intact. PARANASAL SINUSES: No fluid levels. Mucosa normal. OTHER: No other significant finding. IMPRESSION: 1. No acute intracranial abnormality on noncontrast MRI of the brain. 2. Probable mild chronic small vessel ischemic changes. EVIDENCE OF ACUTE STROKE: NO. TECHNICAL DOCUMENTATION: JOB ID: [id number] 2010 [place] [employer] Document Preparation- All Rights Reserved Reading location - IP/workstation name: [email or web address]
[2020-05-03 21:27] VITALS: BP 131/82
--- NOTE | 2020-05-03 21:55 | EKG REPORT ---
SEVERITY:- ABNORMAL ECG - SINUS RHYTHM PROBABLE LEFT ATRIAL ABNORMALITY NONSPECIFIC INTRAVENTRICULAR CONDUCTION DELAY : Confirmed by: Krystle Pascal MD 03-May-2020 21:55:15
== END 2020-05-03 21:27 | disposition home or self-care (01) ==
LOC: ER 16:10
DX: R53.1 Weakness (principal); R47.81 Slurred speech; R41.0 Disorientation, unspecified; J44.9 Chronic obstructive pulmonary disease, unspecified; I25.10 Atherosclerotic heart disease of native coronary artery without angina pectoris; I25.2 Old myocardial infarction; Z87.891 Personal history of nicotine dependence
CPT/HCPCS: 36415; 70450; 70551; 71045; 80053; 84484; 85025; 85610; 85730; 93005; 93010; 99285